=== PATIENT | male | born 1955 | race Caucasian/White ===

== ENCOUNTER 2022-06-17 20:27 | Emergency (ER) | payer MEDICARE, SELFPAY ==
[2022-06-17] VITALS (14 sets, daily range): BP systolic 118–155; BP diastolic 66–109; PULSE 63–100; RESP 16–23; TEMP 36.6–36.7; O2SAT 94–99
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
[2022-06-17] MEDS: HYDROmorphone 2 MG/ML SYR 1 MG IVP ×3 (21:00→23:10)
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
[2022-06-17 21:15] LABS: Abs Immature Grans 0.03 10^3/uL (0.0-0.06); Absolute Basophil Count 0.04 10^3/uL (0.0-0.2); Absolute Eosinophil Count 0.13 10^3/uL (0.0-0.7); Absolute Lymphocyte Count 2.26 10^3/uL (1.2-3.4); Absolute Monocyte Count 0.59 10^3/uL (0.1-0.8); Absolute Neutrophil Count 4.91 10^3/uL (1.2-6.7); Basophils % 0.5; Eosinophils % 1.6; HCT 47.5 % (40.0-50.0); HGB 15.7 g/dL (13.5-17.5); Immature Grans % 0.4; Lymphocytes % 28.4; MCH 30.4 pg (27.0-33.0); MCHC 33.1 % (32.0-36.0); MCV 92 fL (80-95); MPV 9.7 fL (8.0-11.0); Monocytes % 7.4; Neutrophils % 61.7; Platelet Count 185 10^3/uL (130-400); RBC 5.17 10^6/uL (4.36-5.78); RDW 13.3 % (11.8-14.1); RDW-SD 45.8 fL; WBC 7.96 10^3/uL (4.4-10.8)
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
[2022-06-17 21:26] LABS: ETHANOL BLOOD 154.5 mg/dL (<10)
[2022-06-17 21:29] LABS: INR 1.1 (0.9-1.1); PTT Activated 24.5 sec (21.0-27.5); Prothrombin Time 10.6 sec (9.3-11.0)
[2022-06-17] MEDS: Omnipaque 350 MG/ML 100 ML BTL IJ (21:33)
[2022-06-17] MEDS: Normal Saline - Diluent 50 ML VIAL IJ (21:33)
[2022-06-17 21:36] LABS: ALT 47 U/L (16-63); AST 40 U/L (15-37); Albumin 4.1 g/dL (3.4-5.0); Alkaline Phosphatase 84 U/L (46-116); Anion Gap 8.5 mmol/L (3-11); BUN 14 mg/dL (7-18); Bilirubin, Total 0.6 mg/dL (0.2-1.0); CO2 28.5 mmol/L (21.0-32.0); CREATININE 0.8 mg/dL (0.70-1.30); Calcium 8.5 mg/dL (8.5-10.1); Chloride 107 mmol/L (98-107); Glucose 117 mg/dL (74-106); Lipase 95 U/L (16-77); Potassium 3.8 mmol/L (3.5-5.1); Sodium 144 mmol/L (136-145); Total Protein 7.4 g/dL (6.4-8.2)
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
[2022-06-17 22:45] LABS: COVID-19 PCR Negative (Negative); Influenza A PCR Negative (Negative); Influenza B PCR Negative (Negative); RSV PCR Negative (Negative)
[2022-06-17] MEDS: Lidocaine 2% Jelly 6 ML SYR (22:50)
[2022-06-17 23:00] LABS: Source Nasopharynx
[2022-06-17 23:08] LABS: Bilirubin Negative (Negative); Blood Moderate (Negative); Clarity Clear (Clear); Glucose Negative (Negative); Ketones Negative (Negative); Leukocyte Esterase Negative (Negative); Nitrite Positive (Negative); Specific Gravity 1.015 (1.005-1.025)
[2022-06-17 23:09] LABS: Bacteria Moderate HPF (Negative); C & S Indicated? Yes; Casts Negative LPF (Negative); Crystals Negative HPF (Negative); Epithelial Cells Rare HPF (Negative); Mucus Negative (Negative); RBC 0-2 HPF (0-2)
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
== END 2022-06-17 23:31 | disposition short-term general hospital (02) ==
PROVIDERS: Emergency Provider Physician Assistant; PCP Family Medicine
DX: S72.401A Unspecified fracture of lower end of right femur, initial encounter for closed fracture (principal); I10 Essential (primary) hypertension; E78.5 Hyperlipidemia, unspecified; S22.32XA Fracture of one rib, left side, initial encounter for closed fracture; Z96.659 Presence of unspecified artificial knee joint; Z20.822 Contact with and (suspected) exposure to COVID-19; V86.92XA Unspecified occupant of snowmobile injured in nontraffic accident, initial encounter; F10.90 Alcohol use, unspecified, uncomplicated
CPT/HCPCS: 51702; 74177; 80053; 83690; 87077; 87637; 96374; 96376; 99285; 70450; 71260; 72125; 73560; 73700; 80320; 81003; 81015; 85025; 85610; 85730; 87086; 87186; J1170; J3490

== ENCOUNTER 2022-06-27 16:55 | Outpatient (REF) | payer MEDICARE, SELFPAY ==
--- OUTSIDE RECORDS SUMMARY | 2022-06-27 16:57 | XMS_ITS | Continuity of Care Document ---
Author Name Unknown Organization [facility] Address [address] [place] [id number] Encounter LTTL_HI FIN NBR [id number] Date(s): 06/16/22 - 06/16/22 [facility] [address], [place] [address] Discharge Disposition: Home or Self Care Attending Physician: Minda Kaplan Admitting Physician: Minda Kaplan
[2022-06-27 17:19] LABS: Abs Immature Grans 0.09 10^3/uL (0.0-0.06); Absolute Basophil Count 0.04 10^3/uL (0.0-0.2); Absolute Eosinophil Count 0.18 10^3/uL (0.0-0.7); Absolute Lymphocyte Count 1.55 10^3/uL (1.2-3.4); Absolute Neutrophil Count 4.68 10^3/uL (1.2-6.7); Basophils % 0.6; Eosinophils % 2.5; HCT 39.8 % (40.0-50.0); HGB 13.2 g/dL (13.5-17.5); Immature Grans % 1.3; Lymphocytes % 21.7; MCH 30.6 pg (27.0-33.0); MCHC 33.2 % (32.0-36.0); MCV 92 fL (80-95); MPV 9.5 fL (8.0-11.0); Monocytes % 8.4; Neutrophils % 65.5; Platelet Count 331 10^3/uL (130-400); RBC 4.32 10^6/uL (4.36-5.78); RDW 13.4 % (11.8-14.1); RDW-SD 45.6 fL; WBC 7.14 10^3/uL (4.4-10.8)
== END 2022-06-27 16:56 | disposition home or self-care (01) ==
LOC: LBN 16:55
PROVIDERS: PCP Family Medicine; Visit Provider Family Medicine
DX: D64.9 Anemia, unspecified (principal)
CPT/HCPCS: 85025

== ENCOUNTER 2022-06-29 15:04 | Outpatient (REF) | payer MEDICARE, SELFPAY ==
[2022-06-29 15:57] LABS: Bilirubin Negative (Negative); Blood Negative (Negative); Clarity Clear (Clear); Glucose Negative (Negative); Ketones Negative (Negative); Leukocyte Esterase Small (Negative); Nitrite Negative (Negative); Specific Gravity > 1.030 (1.005-1.025)
== END 2022-06-29 15:05 | disposition home or self-care (01) ==
LOC: LBN 15:04
PROVIDERS: PCP Family Medicine; Visit Provider Family Medicine
DX: N39.0 Urinary tract infection, site not specified (principal)
CPT/HCPCS: 81003